=== PATIENT | female | born 1955 | race Caucasian/White ===

== ENCOUNTER 2017-02-06 15:49 | Observation (INO) | payer BC ==
[~2017-02-06 15:49] MED LIST: ADVIL200 MG; AMLODIPINE-BEN1 EAC6 PO; HYDROCHLOROTH12.5 M1 PO; ROBAXIN750 MG/TAB PO; SKELAXIN800 MG PO; SYNTHROID75 MC1 PO; TYLENOL W/CODEI1 TAB PO
[2017-02-06] MEDS ORDERED: VIBRAMYCIN100 M1 PO (16:03)
[2017-02-06] MEDS ORDERED: VIRTUSSIN AC L118 ML (16:04)
[2017-02-06 16:50] LABS: BASO % 0.2 % (0-2); EOS % 1.8 % (0-7); EOSINOPHIL ABSOLUTE COUNT 0.2 tho/cmm (0.0-0.7); HCT-HEMATOCRIT 43.5 % (34.0-49.0); IMMATURE GRANULOCYTES ABSOLUTE 0.05 tho/cmm (0-0.03); IMMATURE GRANULOCYTES PERCENT 0.5 % (0-0.3); LYMPH % 29.5 % (20-45); MCH (MEAN CORPUSCULAR HGB) 30.4 pg (28.0-32.0); MCHC MEAN CORPUSCULAR HGB CONC 34.5 % (32.0-36.0); MCV (MEAN CELL VOLUME) 88.1 fl (82.0-96.0); MEAN PLATELET VOLUME 10.2 cmc (9.4-12.4); MONO % 7.8 % (0-12); MONOCYTE ABSOLUTE COUNT 0.8 tho/cmm (0.0-1.2); NEUTROPHIL ABSOLUTE COUNT 6.1 tho/cmm (1.6-8.0); NEUTROPHIL-AUTOMATED 6.1 tho/cmm (1.6-8.0); NEUTROPHILS % 60.2 % (40-80); PLATELET COUNT 268 tho/cmm (150-450); RED BLOOD COUNT 4.94 mil/cmm (4.00-5.20); RED CELL DISTRIBUTION WIDTH 14.1 % (12.4-16.4); WHITE BLOOD COUNT 10.2 tho/cmm (4.0-10.0)
[2017-02-06 17:06] LABS: ANION GAP 12 mmol/L (0-20); BLOOD UREA NITROGEN 10 mg/dl (6-24); CALCIUM 9.3 mg/dl (8.5-10.5); CARBON DIOXIDE-VENOUS 24 mmol/L (22-32); CHLORIDE 111 mmol/l (96-110); CREATININE 0.75 mg/dl (0.50-1.10); GLUCOSE 102 mg/dL (70-110); POTASSIUM 3.9 mmol/L (3.7-5.1); SODIUM 143 mmol/L (135-145); eGFR VALUE FOR BLACK >90 mL/Min
[2017-02-06] MEDS ORDERED: BREO ELLIPTA 11 EAC1 (17:45)
[2017-02-06] MEDS ORDERED: MUCINEX600 M1 PO (17:45)
[2017-02-06] MEDS ORDERED: ASPIR 8181 M1 PO (17:45)
[2017-02-06] MEDS ORDERED: ALEVE PO (17:46)
[2017-02-06] MEDS ORDERED: FISH OIL 500 M1 EAC2 PO (22:39)
[2017-02-06] MEDS ORDERED: SYSTANE 0.3-0.415 ML OP (22:41)
[2017-02-07 05:00] LABS: ANION GAP 9 mmol/L (0-20); BLOOD UREA NITROGEN 14 mg/dl (6-24); CALCIUM 8.8 mg/dl (8.5-10.5); CARBON DIOXIDE-VENOUS 27 mmol/L (22-32); CHLORIDE 110 mmol/l (96-110); CHOLESTEROL 203 mg/dl (120-200); CREATININE 0.93 mg/dl (0.50-1.10); GLUCOSE 105 mg/dL (70-110); HDL CHOLESTEROL 39 mg/dl (40-60); LDL CHOLESTEROL 122 mg/dl (0-99); POTASSIUM 4.2 mmol/L (3.7-5.1); SODIUM 142 mmol/L (135-145); VLDL 43 mg/dl (0-30); eGFR VALUE FOR BLACK 77 mL/Min
[2017-02-07 05:23] LABS: TRIGLYCERIDES 213 mg/dl (<149)
[2017-02-08 05:52] LABS: BLOOD UREA NITROGEN 11 mg/dl (6-24); CREATININE 0.88 mg/dl (0.50-1.10); eGFR VALUE FOR BLACK 83 mL/Min
== END 2017-02-08 14:35 | disposition other institution (70) ==
LOC: EDMED 15:49 → EMR2 19:29 → PCUA 22:14
PROVIDERS: Emergency Medicine; Internal Medicine; ADMIT Internal Medicine Cardiovascular Disease
PROC: B2111ZZ Fluoroscopy of Multiple Coronary Arteries using Low Osmolar Contrast (ICD-10-PCS; principal; 2017-02-07)
DX: I25.10 Atherosclerotic heart disease of native coronary artery without angina pectoris (principal); I21.4 Non-ST elevation (NSTEMI) myocardial infarction; R79.89 Other specified abnormal findings of blood chemistry; I10 Essential (primary) hypertension; F17.210 Nicotine dependence, cigarettes, uncomplicated; K44.9 Diaphragmatic hernia without obstruction or gangrene; E78.5 Hyperlipidemia, unspecified; E03.9 Hypothyroidism, unspecified; Z79.82 Long term (current) use of aspirin; Z79.899 Other long term (current) drug therapy; Z82.49 Family history of ischemic heart disease and other diseases of the circulatory system; Z98.890 Other specified postprocedural states
CPT/HCPCS: C1887; C1894; G0378; J1644; J1650; J2250; J3010; J7030; Q9967